=== PATIENT | female | born 1960 | race Caucasian/White ===

== ENCOUNTER 2018-03-22 06:02 | Emergency (ER) | payer MEDICAID ==
[~2018-03-22] VITALS: Ht 160 cm; Wt 95.3 kg
[~2018-03-22 06:02] MED LIST: ASPI-605 PO; BUPR100T4 PO; CARB200T PO; FENO200C8 PO; FLUT1DIS3 IH; ISOS30TA6 PO; LOSA100T15 PO; OMEG1CAP21 PO; VALS40TA4 PO; [UNRECOGNIZED DRUG - CODE] PO
--- NOTE | 2018-03-22 06:22 | NUR ---
CALLED IN WAITING ROOM, NO RESPONSE; PT NOT PHYSICALLY IN WAITING ROOM
--- NOTE | 2018-03-22 06:46 | NUR ---
CALLED IN WAITING ROOM, NO RESPONSE; PT NOT PHYSICALLY IN WAITING ROOM.
[2018-03-22 07:01] VITALS: BP 151/78
== END 2018-03-22 07:14 | disposition home or self-care (01) ==
LOC: ER 06:02
DX: Z76.0 Encounter for issue of repeat prescription (principal); I10 Essential (primary) hypertension; J45.909 Unspecified asthma, uncomplicated; G89.29 Other chronic pain; F32.9 Major depressive disorder, single episode, unspecified; F17.200 Nicotine dependence, unspecified, uncomplicated; Z98.890 Other specified postprocedural states; Z90.49 Acquired absence of other specified parts of digestive tract; Z79.82 Long term (current) use of aspirin; Z79.899 Other long term (current) drug therapy
CPT/HCPCS: 99281; A4606; Z7610; Z7502